=== PATIENT | male | born 1965 | race African-American/Black ===

== ENCOUNTER 2017-01-27 08:37 | Emergency (ER) | payer BC, OTHER ==
[~2017-01-27] VITALS: Ht 170.2 cm; Wt 83.0 kg
[2017-01-27] MEDS ORDERED: METF500T4 PO (08:46)
[2017-01-27] MEDS ORDERED: UNKNOWN BP MED (08:46)
[2017-01-27] MEDS ORDERED: TETANUS, DIPHTHERIA, PERTUSSIS VAC/PF 0.5ML (>7YR OLD) IM ONE (09:15)
[2017-01-27] MEDS ORDERED: BACITRACIN ZINC OINT UDPKT TOP ONE (09:15)
[2017-01-27] MEDS ORDERED: LIDOCAINE HCL/EPINEPHRINE 1%-EPI 1:100,000 20 ML VIAL MC ONE (09:15)
[2017-01-27] MEDS ORDERED: IBUPROFEN 600MG TABLET PO ONE (09:15)
[2017-01-27 09:37] VITALS: BP 130/87
== END 2017-01-27 11:00 | disposition home or self-care (01) ==
LOC: ER 09:01
DX: S81.012A Laceration without foreign body, left knee, initial encounter (principal); S01.112A Laceration without foreign body of left eyelid and periocular area, initial encounter; I10 Essential (primary) hypertension; Z90.49 Acquired absence of other specified parts of digestive tract; W25.XXXA Contact with sharp glass, initial encounter; Y93.89 Activity, other specified; Y99.8 Other external cause status; Y92.89 Other specified places as the place of occurrence of the external cause
CPT/HCPCS: 12002; 90471; 90715; 99283; J3490; Z7610